=== PATIENT | male | born 1980 | race Caucasian/White ===

== ENCOUNTER 2021-05-23 23:30 | Emergency (ER) | payer OTHER ==
[~2021-05-23] VITALS: Ht 162.6 cm; Wt 55.0 kg
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
[2021-05-24] MEDS ORDERED: MULTIVIT INFUSN,ADULT 4,VIT K 10 ML, THIAMINE INJ 100 MG, FOLIC ACID INJ 1 MG in IV NOR... IV ONE
[2021-05-24 00:09] LABS: BASO # 0.1 x10^3/uL (0.0-0.2); BASO % 1 % (0-3); EOS # 0.2 x10^3/uL (0.0-0.7); EOS % 2 % (0-3); HEMOGLOBIN 16.1 g/dL (13.0-17.5); LYMPH # 2.7 x10^3/uL (1.0-4.8); LYMPH % 30 % (24-48); MEAN CORPUSCULAR HEMOGLOBIN 33 pg (25-35); MEAN CORPUSCULAR HGB CONC 35 g/dL (31-37); MEAN CORPUSCULAR VOLUME 94 fL (79-100); MONO # 0.7 x10^3/uL (0.0-1.1); MONO % 8 % (0-9); NEUT # 5.1 x10^3/uL (1.8-7.7); NEUT % 59 % (31-73); PLATELET COUNT 268 x10^3/uL (140-400); RED BLOOD COUNT 4.89 x10^6/uL (4.30-5.70); RED CELL DISTRIBUTION WIDTH 13.7 % (11.5-14.5); WHITE BLOOD COUNT 8.8 x10^3/uL (4.0-11.0)
[2021-05-24 00:14] LABS: BARBITURATES NEG (NEG); BENZODIAZEPINES NEG (NEG); CANNABINOIDS NEG (NEG); COCAINE NEG (NEG); METHADONE NEG (NEG); OPIATES NEG (NEG); PHENCYCLIDINE NEG (NEG)
[2021-05-24 00:15] LABS: CALCIUM 8.9 mg/dL (8.5-10.1); CREATININE 0.9 mg/dL (0.7-1.3); GFR 92.5; POTASSIUM 4.1 mmol/L (3.5-5.1)
[2021-05-24 00:18] LABS: AMPHETAMINE/METHAMPHETAMINE NEG (NEG)
[2021-05-24 00:21] LABS: ALBUMIN 3.7 g/dL (3.4-5.0); ALBUMIN/GLOBULIN RATIO 1.1 (1.0-1.7); TOTAL BILIRUBIN 0.2 mg/dL (0.2-1.0)
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
[2021-05-24 01:46] VITALS: BP 98/51
== END 2021-05-24 01:46 | disposition home or self-care (01) ==
LOC: ER 23:30
DX: F10.229 Alcohol dependence with intoxication, unspecified (principal); Y90.7 Blood alcohol level of 200-239 mg/100 ml; Z04.1 Encounter for examination and observation following transport accident; R47.81 Slurred speech; F17.200 Nicotine dependence, unspecified, uncomplicated
CPT/HCPCS: 36415; 70450; 72125; 80053; 80307; 85025; 96365; 99285; G0480; J3411; J3490; J7030

== ENCOUNTER 2022-01-04 09:44 | Emergency (ER) | payer OTHER ==
[~2022-01-04] VITALS: Ht 160 cm; Wt 53.5 kg
[2022-01-04] MEDS ORDERED: metroNIDAZOLE 500 MG TABLET PO ONE (11:15)
[2022-01-04] MEDS ORDERED: ACETAMINOPHEN 500 MG TABLET PO ONE (11:15)
[2022-01-04] MEDS ORDERED: IBUPROFEN 200 MG TABLET. PO ONE (11:15)
[2022-01-04] MEDS ORDERED: CIPROFLOXACIN HCL 250 MG TABLET. PO ONE (11:15)
[2022-01-04] MEDS ORDERED: IOHEXOL 300 MG/ML 100ML VIAL. IV ONE (11:30)
[2022-01-04] MEDS ORDERED: CONTRAST GIVEN. MC PRN (11:30)
--- NOTE | 2022-01-04 12:01 | RAD ---
CT PELVIS W History: Rectal abscess Comparison: None. Technique: CT of the pelvis with intravenous contrast. Findings: There is a posterior right perianal abscess measuring 2.7 x 1.4 x 2.4 cm AP by transverse by cranioca udal. Suggestion of possible fistulous connection to the skin inferiorly. No significant and extensio n into the pelvis. The visualized liver pancreas and kidneys are unremarkable. The visualized portions of the stomach an d small bowel are within normal limits. No colonic wall thickening or pericolonic inflammatory change s. No free pelvic air or fluid. The bladder and prostate are unremarkable. Osseous structures are within normal limits. Impression: 1. Posterior right perianal abscess measuring 2.7 cm diameter. ------ Exposure: One or more of the following individualized dose reduction techniques were utilized for thi s examination: 1. Automated exposure control 2. Adjustment of the mA and/or kV according to patient size 3. Use of iterative reconstruction technique. Electronically signed by: Jose Sparrow MD (01/04/2022 11:58 AM) [id number]
[2022-01-04] MEDS ORDERED: LIDOCAINE 2% PF 5 ML VIAL. INJ ONE (13:30)
[2022-01-04] MEDS ORDERED: CIPR500T94 PO (14:24)
[2022-01-04] MEDS ORDERED: METR-34 PO (14:24)
--- NOTE | 2022-01-04 14:25 | PHYS DOC ---
Past Medical History Past Medical History: No Pertinent History Past Surgical History: No Surgical History Smoking Status: Current Every Day Smoker Alcohol Use: Sober General Adult EDM: Chief Complaint: ABSCESS HPI: HPI: Patient is a 41-year-old male who presents emergency department concerning an infection near his rectum since this past Tuesday, patient reports it felt like a pimple, Tuesday morning, but reports this morning it was more painful and felt je llybean size. Patient denies drainage from his infectious abscess patient reports he had an abscess in the same spot several years ago that burst on its own and has not had problems since. Patient reports he does smoke cigarettes, drinks alcohol occasionally on the weekends, denies illicit drug use. Patient reports he does not have a primary care provider, is not allergic to med ications, does take a blood thinner, 81 mg aspirin and a cholesterol medication related to a cardiac stent he had placed in December 2020 here [facility]. Patient denies chest pains, shortness of breath, fever chills, recent illnesses, denies seeing blood in his stool, denies constipation or diarrhea. Patient denies abdominal discomfort. Denies other physical comp laints or physical concerns. Review of Systems: Review of Systems: 14 body systems of review of systems have been reviewed. See HPI for pertinent positives and negative responses, otherwise all other systems are negative, nonpertinent or noncontributory. Constitutional: Negative except as outlined in HPI above. Skin: Negative except as outlined in HPI above. Eyes: Negative except as outlined in HPI above. HENT: Negative except as outlined in HPI above. Respiratory: Negative except as outlined in HPI above. Cardiovascular: Negative except as outlined in HPI above. GI: Negative except as outlined in HPI above. : Negative except as outlined in HPI above. Musculoskeletal: Negative except as outlined in HPI above. Integument: Negative except as outlined in HPI above. Neurologic: Negative except as outlined in HPI above. Endocrine: Negative except as outlined in HPI above. Lymphatic: Negative except as outlined in HPI above. Psychiatric: Negative except as outlined in HPI above. Heart Score: C/O Chest Pain: No Risk Factors: Risk Factors: DM, Current or recent (<one month) smoker, HTN, HLP, family history of CAD, obesity. Risk Scores: Score 0 - 3: 2.5% MACE over next 6 weeks - Discharge Home Score 4 - 6: 20.3% MACE over next 6 weeks - Admit for Clinical Observation Score 7 - 10: 72.7% MACE over next 6 weeks - Early Invasive Strategies Current Medications: Current Medications Medications (Trade) Dose Ordered Sig/Vasquez Start Time Stop Time Status Last Admin Dose Admin Acetaminophen (Tylenol) 1,000 mg 1X ONCE 01/04/22 11:15 01/04/22 11:16 DC 01/04/22 11:57 1,000 MG Ciprofloxacin (Cipro) 500 mg 1X ONCE 01/04/22 11:15 01/04/22 11:16 DC 01/04/22 11:57 500 MG Ibuprofen (Motrin) 600 mg 1X ONCE 01/04/22 11:15 01/04/22 11:16 DC 01/04/22 11:58 600 MG Info (CONTRAST GIVEN -- Rx MONITORING) 1 each PRN DAILY PRN 01/04/22 11:30 01/06/22 11:29 Iohexol (Omnipaque 300 Mg/ml) 75 ml 1X ONCE 01/04/22 11:30 01/04/22 11:31 DC 01/04/22 11:46 75 ML Lidocaine HCl (Lidocaine Pf 2% Vial) 5 ml 1X ONCE 01/04/22 13:30 01/04/22 13:31 DC 01/04/22 13:52 5 ML Metronidazole (Flagyl) 500 mg 1X ONCE 01/04/22 11:15 01/04/22 11:16 DC 01/04/22 11:58 500 MG Allergies: Allergies: Allergies Coded Allergies Type Severity Reaction Last Updated Verified No Known Drug Allergies 12/20/20 No Physical Exam: PE: Constitutional: Well developed, well nourished, no acute distress, non-toxic appearance. 41-year-old male in no apparent distress. HENT: Normocephalic, atraumatic. Eyes: Conjunctiva normal, no discharge. Neck: Normal range of motion. Cardiovascular: Distal cap refill less than 2 seconds, no cyanosis appreciated. Lungs & Thorax: Patient is in no respiratory distress, no adventitious lung sounds appreciated. Abdomen: Bowel sounds normal, soft, no tenderness, no masses, no pulsatile masses. No bruising or skin discoloration of the abdomen. Skin: Warm, dry, no erythema, no rash. Back: No tenderness, no CVA tenderness. Extremities: No tenderness, no cyanosis, no clubbing, ROM intact, no edema. Neurologic: Alert and oriented X 3, normal motor function, normal sensory function, no focal deficits noted. Psychologic: Affect normal, judgement normal, mood normal. : Patient has abscess at 6:00 to 10 o'clock position just outside rectum no erythema, fluctuant to palpation there is a central punctum not draining. No rashes, no lesions appreciated. Current Patient Data: Vital Signs: Vital Signs Date Time Temp Pulse Resp B/P (MAP) Pulse Ox O2 Delivery O2 Flow Rate FiO2 01/04/22 12:49 68 16 95/49 (64) 97 Room Air 01/04/22 09:44 98.6 98.6 EKG: EKG: [] Radiology/Procedures: Radiology/Procedures: STATUS: REG ER ORD. PHYSICIAN: JHONATAN HUANG APRN REASON: Rectal abscess study PROCEDURE: CT PELVIS W/CONTRAST CT PELVIS W History: Rectal abscess Comparison: None. Technique: CT of the pelvis with intravenous contrast. Findings: There is a posterior right perianal abscess measuring 2.7 x 1.4 x 2.4 cm AP by transverse by craniocaudal. Suggestion of possible fistulous connection to the skin inferiorly. No significant and extension into the pelvis. The visualized liver pancreas and kidneys are unremarkable. The visualized portions of the stomach and small bowel are within normal limits. No colonic wall thickening or pericolonic inflammatory changes. No free pelvic air or fluid. The bladder and prostate are unremarkable. Osseous structures are within normal limits. Impression: 1. Posterior right perianal abscess measuring 2.7 cm diameter. ------ Exposure: One or more of the following individualized dose reduction techniques were utilized for this examination: 1. Automated exposure control 2. Adjustment of the mA and/or kV according to patient size 3. Use of iterative reconstruction technique. Electronically signed by: Jose Sparrow MD (01/04/2022 11:58 AM) [id number] Course & Med Decision Making: Course & Med Decision Making Pertinent Labs and Imaging studies reviewed. (See chart for details) 41-year-old male, vital signs reviewed, presents to the emergency department concerning abscess near his rectum. Physical examination concerning for perirectal abscess, will order CT scan of pelvis with IV contrast for study. Wi ll give p.o. pain medications, start Flagyl/Cipro empiric antibiotic treatment. CT scan reveals superficial perianal abscess, see I&D note. Discussed with patient antibiotic home treatment, side effects of medications, sitz baths, home care of abscess with packing, strict follow-up with primary care, return to ER precautions and concerns were reviewed, patient gave verbal understanding of and is amenable to ED discharge planning. Discussed with the patient all findings and diagnostic testing as well as the need to follow-up with their primary care provider for further evaluation and treatment or return to the ED if any new or worsening symptoms. Strict return precautions were also discussed at length, the patient voiced understanding and agreement with the discharge planning. The patient was nontoxic in appearance, in no apparent distress, and hemodynamically stable at the time of disposition. Dragon Disclaimer: Dragon Disclaimer: This electronic medical record was generated, in whole or in part, using a voice recognition dictation system. Incision and Drainage Time: 1350 Confirmed : Patient, procedure, side, and site correct. Consent: The patient has given verbal consent for incision and drainage of superficial perianal abscess. Indication: Perianal abscess superficial, Performed by: Jhonatan Aldridge [employer]NAGER-C Supervision: Dr. Plaza was available for consult regarding the critical aspects of the procedure, incision, and post procedure exam. Preprocedure exam: Circulation, motor, and sensory intact. Procedural sedation: Not indicated. Description Location: Rectum Anesthesia: Was achieved with 3 cc 2% lidocaine without epinephrine Preparation: Sterile field established, skin prepped with Betadine solution. Procedure The patient was positioned appropriately. An incision was then made over the central punctum using a #11 blade scalpel. Technique: A fluid collection was manually decompressed, wound probed, loculations decompressed . Drainage : 5 cc amount of purulent drainage with scant serosanguineous drainage, culture obtained and sent to lab, the abscess cavity was vigorously irrigated with 250 cc normal saline, 15 cm of quarter inch iodoform packing placed in abscess cavity,. Post procedure exam : Circulation, motor, sensory examination intact. Patient tolerated : Well. Complications: There were no complications. Follow-up: Home care instructions given. Total time: 10 minutes. Departure Departure Impression: Primary Impression: Abscess Disposition: HOME / SELF CARE / HOMELESS Condition: GOOD Referrals: NO PCP (PCP) Patient Instructions: Abscess, Abscess, Perineal Additional Instructions: You were seen today in the emergency department for an infection near your rectum, CT scan showed this was superficial and required draining, an incision w as made and the infection was drained, the abscess cavity was flushed with normal saline, then packed with gauze. Please inform Cystospaz daily at home, you may remove the packing after 3 days. Please continue to take the antibiotics as directed until complete. I have given a list of area physicians for you to follow-up with for ongoing management, please choose a healthcare pro vider and establish care soon. Return to the emergency department for worsening symptoms or other concerns. Thank you for visiting our Emergency Department. It was a pleasure taking care of you today in the emergency department and we appreciate you trusting us with your care. If any additional problems come up don't hesitate to return to visit us. Please follow up with your primary care provider so they can plan additional care if needed and know about the problem that you had. If symptoms worsen come back to the Emergency Department. Any concerning symptoms that start such as chest pain, shortness of air, weakness or numbness on one side of the body, running high fevers or any other concerning symptoms return to the ER. Scripts Ciprofloxacin Hcl (CIPRO) 500 Mg Tablet 1 TAB PO BID for skin infection for 10 Days, #20 TAB 0 Refills Prov: JHONATAN HUANG APRN 01/04/22 Metronidazole (METRONIDAZOLE) 500 Mg Tablet 1 TAB PO BID for infection for 10 Days, #20 TAB 0 Refills Prov: JHONATAN HUANG APRN 01/04/22 JHONATAN HUANG APRN Jan 04, 2022 14:25
[2022-01-04 15:11] VITALS: BP 117/65
== END 2022-01-04 15:14 | disposition home or self-care (01) ==
LOC: ER 09:44
DX: K61.0 Anal abscess (principal); F17.210 Nicotine dependence, cigarettes, uncomplicated
CPT/HCPCS: 46050; 72193; 87075; 99285; Q9967